=== PATIENT | male | born 1980 | race Caucasian/White ===

== ENCOUNTER 2018-05-12 20:17 | Emergency (ER) | payer OTHER ==
[2018-05-12] MEDS ORDERED: Sodium Chloride 0.9% 10 ML Syringe FLUSH PRN (20:44)
[2018-05-12] MEDS ORDERED: Acetaminophen 325 MG Tab PO ONE (20:44)
[2018-05-12] MEDS ORDERED: LORazepam 1 MG Tab PO ONE (20:44)
[2018-05-12] MEDS ORDERED: Sodium Chloride 0.9% 1,000 ML IV SCH (20:45)
[2018-05-12] MEDS ORDERED: Ketorolac 30 MG/ML SDV IVPUSH SCH (20:45)
--- NOTE | 2018-05-12 20:58 | EDM.PDOC ---
ED HPI GENERAL MEDICAL PROBLEM - General Chief Complaint: Cardiovascular Problem Stated Complaint: CHEST PAIN Time Seen by Provider: 05/12/18 20:24 Source of Information: Reports: Patient, RN Notes Reviewed - History of Present Illness INITIAL COMMENTS - FREE TEXT/NARRATIVE: Chest discomfort. This was sharp, achy without radiation left upper chest. He did feel like it was "difficult to breathe. He states then his legs did go numb and also he had numbness of his distal fingertips. That now is somewhat better. The chest achiness and tightness continues. No nausea vomiting or diaphoresis. No history of diabetes hypertension or known cardiac problems. He also does deny history of asthma or any known pulmonary problems. Left Chest Pain Score (Numeric/FACES): 0 - Related Data Allergies Allergy/AdvReac Type Severity Reaction Status Date / Time No Known Allergies Allergy Verified 05/12/18 22:19 ED ROS GENERAL - Review of Systems Review Of Systems: See Below Constitutional: Denies: Fever, Chills, Diaphoresis HEENT: Denies: Sinus Problem, Throat Pain Respiratory: Reports: Shortness of Breath. Denies: Wheezing, Pleuritic Chest Pain, Cough Cardiovascular: Reports: Chest Pain GI/Abdominal: Denies: Abdominal Pain, Nausea, Vomiting Musculoskeletal: Denies: Shoulder Pain, Arm Pain, Back Pain, Joint Pain Skin: Denies: Rash Neurological: Reports: Dizziness, Numbness, Tingling ED EXAM, GENERAL - Physical Exam Exam: See Below General Appearance: Alert, Anxious, Mild Distress Eye Exam: Bilateral Eye: PERRL Throat/Mouth: Normal Inspection Head: Atraumatic. No: Facial Swelling Neck: Supple, Full Range of Motion Respiratory/Chest: Lungs Clear, No Accessory Muscle Use, Chest Non-Tender, Respiratory Distress (Mild tachypnea). No: Rales, Rhonchi, Wheezing Cardiovascular: Regular Rate, Rhythm GI/Abdominal: Soft, Non-Tender Extremities: Normal Inspection. No: Pedal Edema, Leg Pain, Increased Warmth, Redness Neurological: Alert, Oriented, No Motor/Sensory Deficits Skin Exam: Warm, Dry, Normal Color EKG INTERPRETATION EKG Date: 05/12/18 Rhythm: NSR [place]: Normal P-Wave: Present QRS: Other (Nonspecific intraventricular conduction delay) ST-T: Normal Course - Vital Signs Last Recorded V/S: Last Vital Signs Temp 98.2 F 05/12/18 20:21 Pulse 96 05/12/18 20:21 Resp 20 05/12/18 20:21 BP 167/99 H 05/12/18 20:21 Pulse Ox 97 05/12/18 20:21 - Orders/Labs/Meds Orders: Active Orders 24 hr Category Date Time Status EKG 12 Lead [EKG Documentation Completion] [RC] STAT Care 05/12/18 22:18 Active Peripheral IV Care [RC] . DIRECTED Care 05/12/18 20:45 Active Chest 1V Frontal [CR] Stat Exams 05/12/18 20:44 Taken Peripheral IV Insertion Adult [OM.PC] Stat Oth 05/12/18 20:44 Ordered Labs: Laboratory Tests 05/12/18 05/12/18 Range/Units 20:52 20:52 WBC 5.53 (4.23-9.07) K/mm3 RBC 4.39 L (4.63-6.08) M/mm3 Hgb 14.3 (13.7-17.5) gm/L Hct 40.2 (40.1-51.0) % MCV 91.6 (79.0-92.2) fl MCH 32.6 H (25.7-32.2) pg MCHC 35.6 H (32.2-35.5) g/dl RDW Std Deviation 38.9 (35.1-43.9) fL Plt Count 168 (163-337) K/mm3 MPV 9.4 (9.4-12.3) fl Neut % (Auto) 48.5 (34.0-67.9) % Lymph % (Auto) 36.2 (21.8-53.1) % [place] % (Auto) 11.4 (5.3-12.2) % Eos % (Auto) 3.4 (0.8-7.0) Baso % (Auto) 0.5 (0.1-1.2) % Neut # (Auto) 2.68 (1.78-5.38) K/mm3 Lymph # (Auto) 2.00 (1.32-3.57) K/mm3 [place] # (Auto) 0.63 (0.30-0.82) K/mm3 Eos # (Auto) 0.19 (0.04-0.54) K/mm3 Baso # (Auto) 0.03 (0.01-0.08) K/mm3 Sodium 136 (136-145) mEq/L Potassium 3.9 (3.5-5.1) mEq/L Chloride 104 (98-107) mEq/L Carbon Dioxide 25 (21-32) mEq/L Anion Gap 10.9 (5-15) BUN 15 (7-18) mg/dL Creatinine 0.9 (0.7-1.3) mg/dL Est Cr Clr Drug Dosing 111.75 mL/min Estimated GFR (MDRD) > 60 (>60) mL/min BUN/Creatinine Ratio 16.7 (14-18) Glucose 134 H (74-106) mg/dL Calcium 9.1 (8.5-10.1) mg/dL Total Bilirubin 0.4 (0.2-1.0) mg/dL AST 3 L (15-37) U/L ALT 12 L (16-63) U/L Alkaline Phosphatase 50 (46-116) U/L Troponin I < 0.017 (0.00-0.056) ng/mL Total Protein 6.7 (6.4-8.2) g/dl Albumin 3.8 (3.4-5.0) g/dl Globulin 2.9 gm/dL Albumin/Globulin Ratio 1.3 (1-2) Meds: Medications Discontinued Medications Generic Name Dose Route Start Last Admin Trade Name Freq PRN Reason Stop Dose Admin Acetaminophen 975 mg 05/12/18 20:44 05/12/18 20:59 Tylenol PO 05/12/18 20:45 975 mg NOW ONE Administration Sodium Chloride 1,000 mls @ 150 mls/hr 05/12/18 20:45 05/12/18 20:56 Normal Saline IV 150 mls/hr ASDIRECTED TONIA Administration Ketorolac Tromethamine 30 mg 05/12/18 20:45 05/12/18 20:57 Toradol IVPUSH 30 mg ONETIME TONIA Administration Lorazepam 1 mg 05/12/18 20:44 05/12/18 20:59 Ativan PO 05/12/18 20:45 1 mg ONETIME ONE Administration Sodium Chloride 10 ml 05/12/18 20:44 05/12/18 20:59 Saline Flush FLUSH 10 ml ASDIRECTED PRN Administration Keep Vein Open - Re-Assessments/Exams Free Text/Narrative Re-Assessment/Exam: 05/13/18 00:12. Pain is gone, sleeping when I went into the room, chest x-ray looks good troponin other labs look good, discharge instructions as documented. Departure - Departure Time of Disposition: 00:13 Disposition: Home, Self-Care 01 Condition: Fair Clinical Impression: Atypical chest pain Instructions: Nonspecific Chest Pain Referrals: PCP,None [Primary Care Provider] - Forms: ED Department Discharge Additional Instructions: Rest, increase activity slowly as tolerated may take Advil or ibuprofen if needed for any further chest discomfort, follow-up clinic if you continue to have further chest discomfort or any other abnormal symptoms, return to ED as needed if symptoms worsening in any way. - My Orders Last 24 Hours: My Active Orders 05/12/18 20:44 Chest 1V Frontal [CR] Stat Peripheral IV Insertion Adult [OM.PC] Stat 05/12/18 20:45 Peripheral IV Care [RC] . DIRECTED 05/12/18 22:18 EKG 12 Lead [EKG Documentation Completion] [RC] STAT - Assessment/Plan Last 24 Hours: My Active Orders 05/12/18 20:44 Chest 1V Frontal [CR] Stat Peripheral IV Insertion Adult [OM.PC] Stat 05/12/18 20:45 Peripheral IV Care [RC] . DIRECTED 05/12/18 22:18 EKG 12 Lead [EKG Documentation Completion] [RC] STAT
--- NOTE | 2018-05-14 10:30 | CR ---
Chest: Portable view of the chest was obtained. Comparison: No prior chest x-ray. Heart size and mediastinum are within normal limits for portable technique. Lungs are clear. Bony structures are grossly intact. Impression: 1. Nothing acute is seen on portable chest x-ray. Diagnostic code #1
== END 2018-05-13 00:23 | disposition home or self-care (01) ==
LOC: JD.ED 20:17
DX: R07.89 Other chest pain (principal)
CPT/HCPCS: 36415; 71045; 80053; 84484; 85025; 93005; 96361; 96374; 99285; A9270; J1885; J7040; J7050; 93010; 99284-25